=== PATIENT | female | born 1985 | race Hispanic/Latino ===

== ENCOUNTER 2022-11-09 19:56 | Observation (INO) | payer BC ==
[2022-11-09 20:28] VITALS: BMI 47.2
[2022-11-09] MEDS ORDERED: Senokot S 8.6-50 MG TAB PO PRN (21:13)
[2022-11-09] MEDS ORDERED: Calcium Carbonate 500 MG ChewTAB PO PRN (21:13)
[2022-11-09] MEDS ORDERED: Ondansetron ODT 4 MG TAB PO PRN (21:13)
[2022-11-10 04:54] LABS: Hemoglobin 6.9 g/dL (12.0-15.5); Mean Corpuscular HGB CONC 30.7 g/dL (32.0-36.0); Mean Corpuscular Hemoglobin 24.6 pg (27.0-33.0); Mean Corpuscular Volume 80.1 fl (81.6-98.3); Mean Platelet Volume 9.4 fl (7.4-10.4); Platelet Count 509 10x3/uL (150-450); RBC Distribution Width 16.9 % (11.5-14.5); Red Blood Cell (RBC) Count 2.81 10x6/uL (3.90-5.03); White Blood Cell (WBC) Count 12.5 10x3/uL (3.5-10.5)
[2022-11-10 06:09] LABS: MDiff Complete? YES; Platelet Morphology Comment Appears Increased
[2022-11-10 06:18] LABS: Band 2 % (5-11); Eosinophils 4 % (0-10); Lymphocytes 31 % (21-51); Metamyelocyte 1 % (0-0); Monocytes 10 % (0-10); Neutrophil 47 % (42-75); Nucleated RBC 1 % (0); Reactive Lymphocytes 4 % (0-10)
[2022-11-10] MEDS ORDERED: Ferrous Sulfate 325 MG TAB PO SCH (08:00)
[2022-11-10] MEDS ORDERED: Escitalopram Oxalate 20 mg Tablet PO SCH (09:00)
[2022-11-10] MEDS ORDERED: Losartan 25 MG TAB PO SCH (09:00)
[2022-11-10] MEDS ORDERED: Hydrochlorothiazide 25 MG TAB PO SCH (09:00)
[2022-11-10] MEDS: metFORMIN 500 MG TAB PO SCH ×2 (09:16→16:55)
[2022-11-10] MEDS: Acetaminophen 325 MG TAB PO PRN ×2 (11:10→20:08)
[2022-11-10] MEDS ORDERED: Ibuprofen 400 MG TAB PO SCH (15:15)
[2022-11-10 18:22] LABS: Hemoglobin 8.8 g/dL (12.0-15.5)
[2022-11-10] MEDS ORDERED: Tranexamic Acid 650 MG TAB PO SCH (18:45)
[2022-11-10 19:54] VITALS: BP 129/66; TEMP 98.5
[2022-11-10] MEDS ORDERED: Ibuprofen 400 MG TAB PO PRN (21:15)
== END 2022-11-10 20:31 | disposition home or self-care (01) ==
LOC: INTOOBSV 19:56 → CSHPP 19:56
PROVIDERS: ADMIT Obstetrics & Gynecology; ATTEND Family Medicine
DX: N93.9 Abnormal uterine and vaginal bleeding, unspecified (principal); E11.9 Type 2 diabetes mellitus without complications; I10 Essential (primary) hypertension; F41.9 Anxiety disorder, unspecified; D64.9 Anemia, unspecified; Z79.84 Long term (current) use of oral hypoglycemic drugs; Z79.899 Other long term (current) drug therapy
CPT/HCPCS: 36415; 36430; 85025; 86850; 86900; 86901; 94760; G0378; P9016